=== PATIENT | female | born 1960 | race American Indian/Alaskan Native ===

== ENCOUNTER 2024-03-19 20:32 | Emergency (ER) | payer MEDICAID ==
[2024-03-19 20:52] LABS: BASOPHILS ABSOLUTE AUTO 0.03 K/uL (0.00-0.20); BASOPHILS PERCENT AUTO 0.4 % (0.0-1.0); EOSINOPHILS ABSOLUTE AUTO 0.14 K/uL (0.00-0.45); EOSINOPHILS PERCENT AUTO 2.1 % (0.0-6.0); HEMATOCRIT 38.7 % (37.0-47.0); HEMOGLOBIN 12.8 g/dL (12.0-16.0); IMMATURE GRAN ABSOLUTE AUTO 0.01 K/uL (0.00-0.05); IMMATURE GRAN PERCENT AUTO 0.1 % (0.0-0.4); LYMPHOCYTES ABSOLUTE AUTO 2.49 K/uL (1.00-4.80); LYMPHOCYTES PERCENT AUTO 36.7 % (24.0-44.0); MEAN CORPUSCULAR HEMOGLOBIN 27.7 pg (28.0-32.0); MEAN CORPUSCULAR HGB CONC 33.1 g/dL (32.0-36.0); MEAN CORPUSCULAR VOLUME 83.8 fL (83.0-99.0); MEAN PLATELET VOLUME 9.7 fL (9.4-12.3); MONOCYTES ABSOLUTE AUTO 0.49 K/uL (0.00-0.80); MONOCYTES PERCENT AUTO 7.2 % (0.0-8.0); NEUTROPHILS ABSOLUTE AUTO 3.63 K/uL (1.80-7.70); NEUTROPHILS PERCENT AUTO 53.5 % (41.0-71.0); PLATELET COUNT,PLT 233 K/uL (150-400); RED BLOOD CELL COUNT 4.62 M/uL (4.10-5.30); WHITE BLOOD CELL COUNT,WBC 6.79 K/uL (3.9-11.3)
[2024-03-19 21:10] LABS: A/G RATIO 0.8 (0.9-1.6); ALANINE AMINOTRANSFERASE,ALT 24 IU/L (14-63); ALBUMIN 3.8 g/dL (3.4-5.0); ALKALINE PHOSPHATASE 161 U/L (46-116); ASPARTATE AMNIOTRANSFERASE,AST 38 IU/L (15-37); BILIRUBIN TOTAL 0.3 mg/dL (0.2-1.0); BLOOD UREA NITROGEN,BUN 14 mg/dL (7.0-18.0); CALCIUM 9.5 mg/dL (8.5-10.1); CARBON DIOXIDE,CO2 19.3 mmol/L (21.0-32.0); CHLORIDE,CL 99 mmol/L (98-107); CREATININE 1.1 mg/dL (0.6-1.0); GLUCOSE RANDOM 340 mg/dL (74-106); POTASSIUM,K 4.5 mmol/L (3.5-5.1); PROTEIN TOTAL,TP 8.3 g/dL (6.4-8.2); SODIUM,NA 136 mmol/L (136-145)
[2024-03-19 21:11] LABS: ESTIMATED GFR 56 mL/min (>60)
[2024-03-19 21:15] LABS: BASE EXCESS VENOUS -4.7 (-2.0-3.0); BICARBONATE,VENOUS 21 mEQ/mL (22-28); PCO2 VENOUS 41 mmHG (41-51); PH,VENOUS 7.32 (7.31-7.41); PO2 VENOUS < 30 mmHG (35-45)
[2024-03-19] MEDS: Sodium Chloride 0.9% 1,000 ML IV ONE ×2 (21:21→22:05)
[2024-03-19 21:40] LABS: LACTIC ACID 8.8 mmol/L (0.4-2.0)
[2024-03-19] MEDS ORDERED: 50% Dextrose in Water 50 ML Syringe IVPUSH PRN (21:44)
[2024-03-19] MEDS ORDERED: Glucagon,Human Recombinant 1 MG Vial IM PRN (21:44)
[2024-03-19 22:40] LABS: LACTIC ACID 8.1 mmol/L (0.4-2.0)
[2024-03-19 23:05] LABS: ACETAMINOPHEN <2.0 ug/mL; CREATINE KINASE,CK 62 U/L (26-308); SALICYLATE 1.6 mg/dL (0.0-20.0)
[2024-03-19] MEDS: Iopamidol 755 MG/ML 500 ML Multipack Bottle IVPUSH ONE (23:31)
[2024-03-20 01:12] LABS: BLOOD UREA NITROGEN,BUN 11 mg/dL (7.0-18.0); CALCIUM 8.5 mg/dL (8.5-10.1); CARBON DIOXIDE,CO2 21.9 mmol/L (21.0-32.0); CHLORIDE,CL 104 mmol/L (98-107); CREATININE 0.9 mg/dL (0.6-1.0); GLUCOSE RANDOM 274 mg/dL (74-106); POTASSIUM,K 4.4 mmol/L (3.5-5.1); SODIUM,NA 139 mmol/L (136-145)
[2024-03-20 01:15] LABS: ESTIMATED GFR 72 mL/min (>60)
[2024-03-20] MEDS: Lactated Ringers 1,000 ML IV SCH (01:20)
[2024-03-20 01:28] LABS: LACTIC ACID 5.7 mmol/L (0.4-2.0)
[2024-03-20 02:02] LABS: APPEARANCE,URINE CLEAR; BILIRUBIN,URINE NEGATIVE (NEGATIVE); COLOR,URINE YELLOW; GLUCOSE,URINE 500 mg/dL (NEGATIVE); KETONES,URINE NEGATIVE (NEGATIVE); LEUKOCYTE ESTERASE,URINE NEGATIVE (NEGATIVE); NITRITE,URINE NEGATIVE (NEGATIVE); OCCULT BLOOD,URINE NEGATIVE (NEGATIVE); PROTEIN,URINE NEGATIVE (NEGATIVE); UROBILINOGEN,URINE 0.2 EU/dL (<2.0)
[2024-03-20] MEDS: Insulin Regular, Human 100 Units/ML 10 ML Vial IV ONE (02:02)
[2024-03-20 03:28] LABS: LACTIC ACID 4.3 mmol/L (0.4-2.0)
== END 2024-03-20 04:15 | disposition home or self-care (01) ==
LOC: MW.ED 20:32
DX: E87.20 Acidosis, unspecified (principal); I10 Essential (primary) hypertension; E11.9 Type 2 diabetes mellitus without complications; Z79.4 Long term (current) use of insulin; Z79.899 Other long term (current) drug therapy
CPT/HCPCS: 36415; 71045; 71275; 74174; 80048; 80053; 80143; 80179; 81003; 82550; 82803; 82947; 83605; 83690; 85025; 85379; 87040; 87428; 93005; 96360; 96361; 99285; J7030; J7120; Q9967

== ENCOUNTER 2024-04-07 19:04 | Emergency (ER) | payer MEDICARE, MEDICAID ==
[2024-04-07] MEDS: Lidocaine 1% 5 ML VIAL INJECT ONE (22:12)
[2024-04-07] MEDS: Sulfamethoxazole/Trimethoprim 800-160 MG Tab PO ONE (22:12)
[2024-04-07] MEDS: Bacitracin Oint 1 GM U/D Packet TOP ONE (22:20)
== END 2024-04-07 23:32 | disposition home or self-care (01) ==
LOC: MW.ED 19:04
DX: L03.012 Cellulitis of left finger (principal); L03.011 Cellulitis of right finger; I10 Essential (primary) hypertension; E78.00 Pure hypercholesterolemia, unspecified; E11.9 Type 2 diabetes mellitus without complications; Z79.4 Long term (current) use of insulin; Z79.899 Other long term (current) drug therapy
CPT/HCPCS: 10060; 99283; A9270; J3490